=== PATIENT | male | born 1995 | race Hispanic/Latino ===

== ENCOUNTER 2017-09-25 11:05 | Emergency (ER) | payer SELFPAY ==
[2017-09-25] MEDS ORDERED: Bacitracin Oint 1 GM U/D Packet TOP ONE (11:26)
--- NOTE | 2017-09-25 12:08 | EDM.PDOC ---
ED HPI GENERAL MEDICAL PROBLEM - General Chief Complaint: Laceration Stated Complaint: STITCHES NEEDED ON PT'S RT HAND Time Seen by Provider: 09/25/17 11:07 Source of Information: Reports: Patient History Limitations: Reports: No Limitations - History of Present Illness INITIAL COMMENTS - FREE TEXT/NARRATIVE: HISTORY AND PHYSICAL: History of present illness: Patient is a 21-year-old male who presents to the emergency room today with complaints of a laceration to the right palmar surface after cutting it while at work. He was using a scraper and it slipped resulting in lacerating the ulnar surface/palmar surface of the right hand. No bleeding noted at this time. Tetanus is up-to-date. Review of systems: As per history of present illness and below otherwise all systems reviewed and negative. Past medical history: As per history of present illness and as reviewed below otherwise noncontributory. Surgical history: As per history of present illness and as reviewed below otherwise noncontributory. Social history: No reported history of drug or alcohol abuse. Family history: As per history of present illness and as reviewed below otherwise noncontributory. Physical exam: General: Well-developed and well-nourished 21-year-old male. Alert and oriented. Nontoxic appearing and in no acute distress. HEENT: Atraumatic, normocephalic, pupils equal and reactive bilaterally, negative for conjunctival pallor or scleral icterus, mucous membranes moist, throat clear, neck supple, nontender, trachea midline. No drooling or trismus noted. No meningeal signs Lungs: Clear to auscultation, breath sounds equal bilaterally, chest nontender. Heart: S1S2, regular rate and rhythm without overt murmur Abdomen: Soft, nondistended, nontender. Negative for masses or hepatosplenomegaly. Negative for costovertebral tenderness. Pelvis: Stable nontender. Genitourinary: Deferred. Rectal: Deferred. Skin: 3.5 cm laceration to the ulnar/palmar surface of the right hand. Otherwise skin is intact, warm, dry. No lesions or rashes noted. Extremities: Atraumatic, negative for cords or calf pain. Neurovascular unremarkable. Neuro: Awake, alert, oriented. Cranial nerves II through XII unremarkable. Cerebellum unremarkable. Motor and sensory unremarkable throughout. Exam nonfocal. Notes: Area was anesthetized with 1% lidocaine. Cleansed with chlorhexidine and wound wash. No foreign bodies noted. No tendon involvement. CMS intact. 4-0 nylon, #6 interrupted sutures. Patient tolerated well. Nonstick bacitracin dressing applied. Supportive care measures were reviewed and discussed. We did discuss signs and symptoms of infection to monitor for. He will follow-up with his primary care provider in the next couple days. He voices understanding and is agreeable to plan of care. Denies any further questions at this time. Diagnostics: [] Therapeutics: 1% lidocaine, wound care, nonstick dressing, bacitracin Impression: Laceration, right hand Plan: 1. Please keep the area clean and dry. Continue to monitor for signs of infection. 2. Sutures to be removed in 7-10 days. 3. Tylenol and/or ibuprofen as needed for pain management. 4. Please follow-up with your primary care provider in the next 1-2 days. Return to the ED as needed and as discussed. Definitive disposition and diagnosis as appropriate pending reevaluation and review of above. Onset: Today Duration: Hour(s): Location: Reports: Upper Extremity, Right right palm Pain Score (Numeric/FACES): 4 - Related Data Allergies Allergy/AdvReac Type Severity Reaction Status Date / Time No Known Allergies Allergy Verified 09/25/17 11:16 Home Meds: Home Meds . [No Known Home Meds] 09/25/17 [History] Past Medical History - Past Health History Medical/Surgical History: Denies Medical/Surgical History - Infectious Disease History Infectious Disease History: Reports: Chicken Pox, Shingles Social & Family History - Family History Family Medical History: Noncontributory - Tobacco Use Smoking Status *Q: Never Smoker - Recreational Drug Use Recreational Drug Use: No ED ROS GENERAL - Review of Systems Review Of Systems: ROS reveals no pertinent complaints other than HPI. ED EXAM, SKIN/RASH Exam: See Below (See dictation) ED SKIN PROCEDURES - Laceration/Wound Repair Right Ulnar/Palmar Hand Lac/Wound length In cm: 3.5 Appearance: Subcutaneous, Linear Distal NVT: Neuro & Vascular Intact, No Tendon Injury Anesthetic Type: Local Local Anesthesia - Lidocaine (Xylocaine): 1% Plain Local Anesthetic Volume: 5cc Skin Prep: Chlorhexidine (Hibiciens), Saline, Sterile Drape Saline Irrigation (cc's): 25 Exploration/Debridement/Repair: Wound Explored, No Foreign Material Found Closed with: Sutures Suture Size: 4-0 # of Sutures: 6 Suture Type: Nylon Sterile Dressing Applied: Provider Tetanus Status Addressed: Yes Complications: No Course - Vital Signs Last Recorded V/S: Last Vital Signs Temp 97.7 F 09/25/17 11:16 Pulse 76 09/25/17 11:16 Resp 18 09/25/17 11:16 BP 151/81 H 09/25/17 11:16 Pulse Ox 97 09/25/17 11:16 - Orders/Labs/Meds Meds: Medications Discontinued Medications Generic Name Dose Route Start Last Admin Trade Name Clementina PRN Reason Stop Dose Admin Bacitracin 1 dose 09/25/17 11:26 Bacitracin Oint 1 Gm TOP 09/25/17 11:27 ONETIME ONE Lidocaine HCl 5 ml 09/25/17 11:26 Xylocaine-Mpf 1% INJECT 09/25/17 11:27 ONETIME ONE Departure - Departure Time of Disposition: 12:07 Disposition: Home, Self-Care 01 Clinical Impression: Laceration - Discharge Information Instructions: Laceration Care, Adult, [id number] Referrals: PCP,None [Primary Care Provider] - Forms: ED Department Discharge Additional Instructions: The following information is given to patients seen in the emergency department who are being discharged to home. This information is to outline your options for follow-up care. We provide all patients seen in our emergency department with a follow-up referral. The need for follow-up, as well as the timing and circumstances, are variable depending upon the specifics of your emergency department visit. If you don't have a primary care physician on staff, we will provide you with a referral. We always advise you to contact your personal physician following an emergency department visit to inform them of the circumstance of the visit and for follow-up with them and/or the need for any referrals to a consulting specialist. The emergency department will also refer you to a specialist when appropriate. This referral assures that you have the opportunity for follow-up care with a specialist. All of these measure are taken in an effort to provide you with optimal care, which includes your follow-up. Under all circumstances we always encourage you to contact your private physician who remains a resource for coordinating your care. When calling for follow-up care, please make the office aware that this follow-up is from your recent emergency room visit. If for any reason you are refused follow-up, please contact the [facility] at and asked to speak to the emergency department charge nurse. [facility] [address] [place] [id number] 1. Please keep the area clean and dry. Continue to monitor for signs of infection. 2. Sutures to be removed in 7-10 days. 3. Tylenol and/or ibuprofen as needed for pain management. 4. Please follow-up with your primary care provider in the next 1-2 days. Return to the ED as needed and as discussed.
== END 2017-09-25 12:22 | disposition home or self-care (01) ==
LOC: MW.ED 11:05
DX: S61.411A Laceration without foreign body of right hand, initial encounter (principal); W27.8XXA Contact with other nonpowered hand tool, initial encounter; Y99.0 Civilian activity done for income or pay
CPT/HCPCS: 99283